=== PATIENT | female | born 1985 | race Caucasian/White ===

== ENCOUNTER 2023-05-19 13:32 | Outpatient (RCR) | payer MEDICARE, SELFPAY ==
[2023-05-02 13:30] VITALS: BP 112/68
[2023-05-02] MEDS: VENOFER 110 MG IV (13:45)
[2023-05-02 15:05] VITALS: BP 107/64
[2023-05-12] MEDS: VENOFER 110 MG IV (10:32)
[2023-05-12 10:34] VITALS: BP 116/77
[2023-05-14 13:25] VITALS: BP 114/76
[2023-05-14] MEDS: VENOFER 110 MG IV (13:37)
[2023-05-14 14:41] VITALS: BP 118/78
[2023-05-19 14:00] VITALS: BP 105/62
[2023-05-19] MEDS: VENOFER 110 MG IV (14:16)
[2023-05-19 15:18] VITALS: BP 94/51
== END 2023-05-28 23:59 | disposition home or self-care (01) ==
LOC: OID 13:32
PROVIDERS: ATTENDING PHYSICIAN Physician Assistant; FAMILY PHYSICIAN Internal Medicine
DX: E88.40 Mitochondrial metabolism disorder, unspecified (principal); D80.2 Selective deficiency of immunoglobulin A [IgA]; K90.0 Celiac disease
CPT/HCPCS: 96365; J1756

== ENCOUNTER → 2024-02-02 13:57 | Outpatient (REF) | payer MEDICARE, SELFPAY | LOC: HWRAD 13:57 | PROVIDERS: ATTENDING PHYSICIAN Obstetrics & Gynecology Gynecology; FAMILY PHYSICIAN Internal Medicine | DX: N80.129 Deep endometriosis of ovary, unspecified ovary (principal) | CPT/HCPCS: 76856 ==